=== PATIENT | female | born 1970 | race Caucasian/White ===

== ENCOUNTER 2016-06-04 11:33 | Day surgery (SDC) | payer OTHER ==
[~2016-06-04] VITALS: Ht 165.1 cm; Wt 104.3 kg
[~2016-06-04 11:33] MED LIST: PRISTIQ100 MG PO; PRISTIQ50 MG PO
[2016-06-04] MEDS ORDERED: EXCEDRIN EXTRA1 EACH PO (12:24)
[2016-06-04 12:26] VITALS: BP 146/72
[2016-06-04 16:00] VITALS: BP 127/77
[2016-06-07 12:02] LABS: INTERNAL CONTROL VALID? YES
== END 2016-06-04 16:40 | disposition home or self-care (01) ==
LOC: SDC 11:33
PROVIDERS: Podiatrist Foot & Ankle Surgery
PROC: 01N Peripheral Nervous System, Release (ICD-10-PCS; principal; 2016-06-04)
DX: G57.52 Tarsal tunnel syndrome, left lower limb (principal)
CPT/HCPCS: 84703; J0171; J0690; J1100; J2250; J2405; J2795; J3010; S0020